=== PATIENT | female | born 1950 | race Caucasian/White ===

== ENCOUNTER 2021-02-11 07:58 | Emergency (ER) | payer MEDICARE ==
[~2021-02-11] VITALS: Ht 167.6 cm; Wt 70.0 kg
[2021-02-11] MEDS ORDERED: LORTAB 1010 MG PO (09:20)
[2021-02-11 09:30] VITALS: BP 121/71
== END 2021-02-11 09:42 | disposition home or self-care (01) ==
LOC: ED 07:58
DX: S32.591A Other specified fracture of right pubis, initial encounter for closed fracture (principal); S63.502A Unspecified sprain of left wrist, initial encounter; W01.0XXA Fall on same level from slipping, tripping and stumbling without subsequent striking against object, initial encounter; Y92.009 Unspecified place in unspecified non-institutional (private) residence as the place of occurrence of the external cause